=== PATIENT | male | born 1975 | race American Indian/Alaskan Native ===

== ENCOUNTER 2019-10-26 20:29 | Emergency (ER) | payer SELFPAY ==
[2019-10-26 21:11] VITALS: BP 171/109
== END 2019-10-26 22:15 | disposition left against medical advice (07) ==
LOC: ED 20:29
DX: R42 Dizziness and giddiness (principal); R06.02 Shortness of breath; Z53.21 Procedure and treatment not carried out due to patient leaving prior to being seen by health care provider

== ENCOUNTER 2020-11-05 00:21 | Emergency (ER) | payer SELFPAY ==
--- NOTE | 2020-11-05 02:28 | Emergency Department Report ---
ED General Adult HPI - General Chief complaint: Dental/Oral Stated complaint: LT SIDE TOOTH PAIN Source: patient Mode of arrival: Ambulatory Limitations: No Limitations - History of Present Illness Initial comments: Patient is a 45-year-old -[place] male with a history of hypertension who presents to the ED with complaint of acute onset persistent severe painful left maxillary premolar molar toothache with swollen gums for the last 2 days. Patient states that he had a similar symptoms affecting the same set of teeth about a month ago and was given antibiotics but because he started a new job he was unable to follow-up with a dentist. Patient states that in the last 24 hours he has not been able to eat anything or to sleep because of worsening toothache. Patient denies fever, chills, dizziness, syncope, sore throat, nasal and sinus congestion, change in vision, ear pain, chest pain or shortness of breath, nausea, vomiting, diarrhea, abdominal pain, traumatic injury or dysphagia. MD Complaint: Left maxillary premolar molar toothache; swollen left maxillary gingiva -: Sudden, days(s) (2) Location: mouth Radiation: non-radiation Severity scale (0 -10): 7 Quality: aching, sharp Consistency: constant Improves with: none Worsens with: eating Associated Symptoms: denies other symptoms. denies: confusion, chest pain, cough, diaphoresis, fever/chills, headaches, loss of appetite, malaise, nausea/vomiting, rash, seizure, shortness of breath Treatments Prior to Arrival: none - Related Data Previous Rx's Medication Instructions Recorded Last Taken Type Acetaminophen/Codeine [Tylenol 1 tab PO Q6H PRN #12 tab 11/05/20 Unknown Rx /Codeine # 3 tab] Clindamycin [Clindamycin CAP] 300 mg PO Q8HR #60 capsule 11/05/20 Unknown Rx Ketorolac [Toradol] 10 mg PO Q8H PRN #20 tablet 11/05/20 Unknown Rx Allergies Allergy/AdvReac Type Severity Reaction Status Date / Time banana Allergy Swelling Verified 10/26/19 21:10 ED Review of Systems ROS: Stated complaint: LT SIDE TOOTH PAIN Other details as noted in HPI Constitutional: denies: chills, fever Eyes: denies: eye pain, eye discharge, vision change ENT: dental pain (Painful left maxillary premolar molar teeth), other (Swollen, painful left maxillary gingiva). denies: ear pain, throat pain Respiratory: denies: cough, shortness of breath, wheezing Cardiovascular: denies: chest pain, palpitations Endocrine: no symptoms reported Gastrointestinal: denies: abdominal pain, nausea, diarrhea Genitourinary: denies: urgency, dysuria Musculoskeletal: denies: back pain, joint swelling, arthralgia Skin: denies: rash, lesions Neurological: denies: headache, weakness, paresthesias Psychiatric: denies: anxiety, depression Hematological/Lymphatic: denies: easy bleeding, easy bruising ED Past Medical Hx - Past Medical History Previous Medical History?: Yes Hx Hypertension: Yes (ran out of meds) - Surgical History Past Surgical History?: No - Social History Smoking Status: Never Smoker Substance Use Type: None - Medications Home Medications: Home Medications Medication Instructions Recorded Confirmed Last Taken Type Acetaminophen/Codeine [Tylenol 1 tab PO Q6H PRN #12 tab 11/05/20 Unknown Rx /Codeine # 3 tab] Clindamycin [Clindamycin CAP] 300 mg PO Q8HR #60 capsule 11/05/20 Unknown Rx Ketorolac [Toradol] 10 mg PO Q8H PRN #20 tablet 11/05/20 Unknown Rx ED Physical Exam - General Limitations: No Limitations General appearance: alert, in no apparent distress - Head Head exam: Present: atraumatic, normocephalic - Eye Eye exam: Present: normal appearance, PERRL, EOMI Pupils: Present: normal accommodation - ENT ENT exam: Present: mucous membranes moist, TM's normal bilaterally, normal external ear exam, other (Severely tender left maxillary premolar molar teeth; severely tender and swollen left maxillary gingiva) - Neck Neck exam: Present: normal inspection, full ROM, lymphadenopathy (Anterior cervical lymphadenopathy) - Respiratory Respiratory exam: Present: normal lung sounds bilaterally. Absent: respiratory distress, wheezes, rales, chest wall tenderness, accessory muscle use, decreased breath sounds - Cardiovascular Cardiovascular Exam: Present: regular rate, normal rhythm, normal heart sounds. Absent: systolic murmur, diastolic murmur, rubs, gallop - GI/Abdominal GI/Abdominal exam: Present: soft, normal bowel sounds. Absent: tenderness, guarding, rebound, hyperactive bowel sounds - Extremities Exam Extremities exam: Present: normal inspection, full ROM, normal capillary refill - Back Exam Back exam: Present: normal inspection, full ROM. Absent: tenderness, CVA tenderness (R), CVA tenderness (L), muscle spasm, paraspinal tenderness, vertebral tenderness - Neurological Exam Neurological exam: Present: alert, oriented X3, CN II-XII intact, normal gait, reflexes normal - Psychiatric Psychiatric exam: Present: normal affect, normal mood - Skin Skin exam: Present: warm, dry, intact, normal color. Absent: rash ED Course Vital Signs 11/05/20 11/05/20 01:19 02:04 Temperature 98.5 F 99.0 F Pulse Rate 86 82 Respiratory 20 20 Rate Blood Pressure 173/102 O2 Sat by Pulse 96 98 Oximetry ED Medical Decision Making - Medical Decision Making This is a 45-year-old -[place] male with a history of hypertension who presents to the ED with complaint of acute onset persistent severe painful left maxillary premolar molar toothache with swollen gums for the last 2 days. Patient states that he had a similar symptoms affecting the same set of teeth about a month ago and was given antibiotics but because he started a new job he was unable to follow-up with a dentist. Patient states that in the last 24 hours he has not been able to eat anything or to sleep because of worsening toothache. In the ED, patient is alert and oriented x3 and is not in any distress but appears to be in pain. Patient was treated for pain in the ED and discharged home on pain medications based on the history and physical exam findings. Patient was advised to follow-up with a dentist or primary care physician in 7 to 10 days for reevaluation or return to the ED immediately if symptoms get worse. - Differential Diagnosis Dental abscess; dental caries; gingivitis; sinusitis Critical care attestation.: If time is entered above; I have spent that time in minutes in the direct care of this critically ill patient, excluding procedure time. ED Disposition Clinical Impression: Dental abscess, Acute gingivitis, Chronic enamel dental caries Disposition: TO HOME OR SELFCARE Is pt being admited?: No Does the pt Need Aspirin: No Condition: Stable Instructions: Dental Abscess, [id number], Trench Mouth Additional Instructions: Take medication with food, drink plenty of fluids and follow-up with the primary care physician or dentist in 7 to 10 days for reevaluation. Return to the ED immediately if symptoms get worse. Prescriptions: Clindamycin [Clindamycin CAP] 300 mg PO Q8HR #60 capsule Ketorolac [Toradol] 10 mg PO Q8H PRN #20 tablet PRN Reason: Pain Acetaminophen/Codeine [Tylenol /Codeine # 3 tab] 1 tab PO Q6H PRN #12 tab PRN Reason: Pain , Severe (7-10) Referrals: [facility], [place] [Outside] - 7-10 days Time of Disposition: 02:25 Print Language: TAJIK
[2020-11-05] MEDS ORDERED: ACETAMINOPHEN 500 MG TAB PO ONE (02:31)
[2020-11-05] MEDS ORDERED: ONDANSETRON 4 MG ODT TAB PO ONE (02:31)
[2020-11-05] MEDS ORDERED: IBUPROFEN 600 MG TAB PO ONE (02:31)
[2020-11-05] MEDS ORDERED: CLINDAMYCIN 150 MG CAP PO ONE (03:31)
[2020-11-05 03:55] VITALS: BP 142/78
== END 2020-11-05 03:55 | disposition home or self-care (01) ==
LOC: ED 00:21
DX: K04.7 Periapical abscess without sinus (principal); K05.00 Acute gingivitis, plaque induced; K02.9 Dental caries, unspecified; I10 Essential (primary) hypertension; Z79.899 Other long term (current) drug therapy; Z91.018 Allergy to other foods
CPT/HCPCS: 99282; Q0162